=== PATIENT | male | born 1975 | race Caucasian/White ===

== ENCOUNTER 2018-08-11 11:57 | Emergency (ER) | payer OTHER, SELFPAY ==
[2018-08-11 12:00] VITALS: BP 161/90; PULSE 65; RESP 16; TEMP 36.8; O2SAT 97
--- NOTE | 2018-08-11 12:07 | W.ED.GENAD ---
Discharge Plan Disposition Patient Disposition: HOME Condition: Fair Discharge Details Chief Complaint: Abd Prob Clinical Impression: Gastroenteritis, Colitis Primary Care Provider: Sommer,Local ED Provider: Layla Truong Home Meds and New Rx's Prescriptions: New ciprofloxacin HCl 500 mg tablet 500 mg PO Q12H Qty: 14 RF: 0 metronidazole [Flagyl] 500 mg tablet 500 mg PO TID Qty: 20 RF: 0 promethazine 25 mg tablet 25 mg PO Q6H PRN (Reason: nausea and vomiting) Qty: 10 RF: 0 Continued lisinopril 5 mg Tablet 5 mg PO DAILY RF: 0 Discharge Instructions Instructions: Gastroenteritis (ED), Infectious Colitis (ED) Additional Instructions: Encourage hydration. May use Tylenol as needed for discomfort. Please take Phenergan as prescribed to help with nausea or vomiting. Please take the ciprofloxacin and Flagyl as prescribed for infection. Please keep upcoming appointment with general surgery and contact your primary care provider Monday to schedule appointment this week. If you develop fever/chills, inability stay hydrated, increased pain, weakness or other new/worsening symptoms please seek care urgently once again. We will contact you if any of the pending tests are positive. Discharge Data Discharge Date/Time-TO BE ENTERED AT DEPARTURE: 08/11/18 16:25 Medical Decision Making Patient is a 43-year-old male presenting today with chief complaint of abdominal pain that began approximately 10 hours prior to arrival. He reports that he has been having periumbilical and left lower quadrant pain. He endorses nausea and vomiting. States he has had multitude of episodes of diarrhea that has since become bloody. Does have a history of hemorrhoids but states they have never been actively bleeding before. Surgical history pertinent for left nephrectomy secondary to cancer. Patient reports he did have an MRI recently which was clear of any signs of recurrence. Is not actively nauseated. Rates pain at a 6 out of 10 at this time. Denies any fevers or chills. Patient is camping currently. No one else has symptoms like this. Was a treated with Flagyl by his primary care for hernia pain but is been several weeks since completion of this. Denies any recent travel out of the country. Labs are reassuring. Patient is not anemic, no leukocytosis. His BUN is 19, creatinine 1.46. Patient reports that this is typical and quite good for him. GFR 52 which she states, higher in for him status post nephrectomy. Glucose is 139, I did discuss this with the patient. He has no known diagnosis of diabetes. Advised that this may be secondary to his acute illness and should discuss further with his primary care physician. Urine is concerning for trace amount of blood. Otherwise without significant abnormality. Patient reports that he has had blood in his urine historically but will discuss this further with his primary care. Lactoferrin is positive on stool sample. C. difficile is negative. Secondary the patient's kidney function and that he only has 1 functioning kidney, decided to hold off on IV contrast. Instead, we will use oral. CT reviewed by radiologist. They note a likely cyst to the right kidney. We will discuss this with the patient. He does have mural thickening of the descending colon consistent with nonspecific colitis. No evidence of diverticular disease. Trace amount of free fluid in the pelvis no evidence of free air or abscess. I also notes: Complicated fat-containing inguinal hernias bilaterally, patient is aware of these and has plan for treatment of these. Discussed the findings with the patient. General surgeon was in the department at the time these results came back from CT and recommended Cipro and Flagyl. I discussed this plan with the patient. We discussed the risks associated with ciprofloxacin in particular. I advised that she begin using probiotic. Encourage hydration. He is able to take an oral hydration. As he is continuing to endorse mild nausea, will give Zofran ODT. Patient given Tylenol for abdominal discomfort. We discussed home remedies and [id number] medications that may help with symptomatic management. Will treat with ciprofloxacin and Flagyl as directed by surgeon. Advise close follow-up with primary care provider, patient is going home on Monday and will schedule follow-up appointment. Disc of images were sent home with him. He was given strict return precautions. All of his questions and concerns were addressed and he is in agreement with this plan HPI General Mode of arrival: ambulatory. Date/Time Provider Initiated Documentation: 08/11/18 11:58. Limitations to Documentation: no limitations. Information obtained by: patient and RN notes reviewed. History of Present Illness 43 year old M presents to the emergency department with the chief complaint of abdominal pain, described as moderate, with intensity rated at 6. Quality is described as aching, and is localized to the abdomen. Patient reports no radiation. Patient started experiencing this hour(s) (10) and it has been constant. No relieving factors improve symptom(s), No exacerbating factors reported . Patient notes loss of appetite and nausea/vomiting; denies chest pain, fever/chills, rash, shortness of breath and weakness. Patient did receive the following treatments prior to arrival, none Related Data Home Medications Medication Instructions Recorded Confirmed ciprofloxacin HCl 500 mg PO Q12H #14 tab 08/11/18 lisinopril 5 mg PO DAILY 08/11/18 08/11/18 metronidazole [Flagyl] 500 mg PO TID #20 tab 08/11/18 promethazine 25 mg PO Q6H PRN #10 tab 08/11/18 Previous Rx's Medication Instructions Recorded ciprofloxacin HCl 500 mg PO Q12H #14 tab 08/11/18 metronidazole [Flagyl] 500 mg PO TID #20 tab 08/11/18 promethazine 25 mg PO Q6H PRN #10 tab 08/11/18 Allergies Allergy/AdvReac Type Severity Reaction Status Date / Time No Known Allergies Allergy Unverified 08/11/18 12:04 General Stated Complaint: Abd Prob MILLICENT: 3 Review of Systems Constitutional Reports as per HPI, Denies chills, Denies fatigue, Denies fever(s) and Denies headache(s) ENT Denies headache(s) Cardiovascular Reports as per HPI, Denies chest pain and Denies dyspnea Respiratory Reports as per HPI, Denies cough and Denies dyspnea Gastrointestinal Reports as per HPI, Reports abdominal pain, Reports hematochezia, Reports diarrhea, Reports nausea and Reports vomiting Genitourinary Denies system reviewed and no additional complaints, except as docu (patient denies any change in urinary habits) Musculoskeletal Reports as per HPI and Denies back pain Integumentary/Breasts Reports as per HPI and Denies rash Neurologic Reports as per HPI and Denies headache(s) Endocrine Denies fatigue [facility] Social History Smoking/Tobacco Use Status: Never Alcohol Intake: current Alcohol Intake frequency: a few times a week Alcohol type: hard liquor Drug use: Never Substance use type: does not use Do you feel safe at home: Yes Do you feel safe in your relationship?: Yes Exam Const General: cooperative, healthy appearing, comfortable, no acute distress and well developed Nutritional Appearance: average body habitus and well nourished Orientation: alert and awake [facility] Head: normal to inspection Mouth: moist mucous membranes Resp Effort & Inspection: normal respiratory effort, able to speak in complete sentences and no respiratory distress Auscultation: clear to auscultation bilaterally, no rales, no rhonchi and no wheezes Cardio Rate: regular rate Rhythm: regular rhythm Heart Sounds: S1 normal and S2 normal GI Inspection: normal to inspection, non-distended, no visible herniation and no visible pulsation Palpation: soft, no hepatosplenomegaly, no guarding, not rigid, no splenomegaly and tender in the LLQ; obturator sign negative, psoas sign negative and with no rebound tenderness Percussion: normal to percussion Auscultation: normal bowel sounds Rectal Exam: visual inspection normal, normal sphincter tone, prostate normal, No fecal impaction, No fissure, heme positive stool gross blood, No hemorrhoids and No tenderness Back/Spine/Pelvis Back: no CVA tenderness Skin General skin exam: no rashes or lesions noted Trauma: no lacerations or abrasions Neuro General: alert and awake Cognition: normal cognition Speech: speech normal Gait: normal gait Psych Appearance: grossly normal and well kempt Mental Status: mental status grossly normal Speech and Movement: speech and movement normal Course Vital Signs Temperature 36.8 C 08/11/18 12:00 Pulse 65 08/11/18 12:00 Respiratory Rate 16 08/11/18 12:00 Blood Pressure 161/90 H 08/11/18 12:00 Pulse Oximetry 97 08/11/18 12:00 Temperature 36.8 C 08/11/18 12:00 Pulse 65 08/11/18 12:00 Respiratory Rate 16 08/11/18 12:00 Respiratory Effort Non-Labored 08/11/18 12:01 Blood Pressure 161/90 H 08/11/18 12:00 Pulse Oximetry 97 08/11/18 12:00 Oxygen Delivery Method Room Air 08/11/18 12:00 Oxygen Flow Rate 0 08/11/18 12:00 Pain Level 6 08/11/18 12:00
[2018-08-11 12:09] VITALS: BP 159/89; RESP 15; TEMP 36.7; O2SAT 100
--- NOTE | 2018-08-11 12:33 | DI.CT_ITS ---
SYMPTOM/DIAGNOSIS: CENTRAL/LLQ PAIN WITH BLOOD IN STOOL, ? DIVERTICULA ABDOMEN AND PELVIC CT: 08/11 CT Examination of the abdomen and pelvis was performed with oral contrast only. Images obtained through the lung bases are unremarkable. Liver, spleen and pancreas have an unremarkable noncontrast appearance. Gallbladder and biliary ducts are unremarkable. Adrenals appear normal bilaterally. Prior left nephrectomy noted. Right kidney unremarkable in appearance except for probable small cortical cyst. No evidence of hydronephrosis or nephrolithiasis. Mild urinary bladder wall thickening noted, question cystitis vs mild chronic bladder outlet obstruction. No significant abdominal or pelvic adenopathy seen. Small bilateral fat containing inguinal hernias noted. Appendix is normal. No evidence of diverticulitis. Note is made of an area of wall thickening of the descending colon with mild associated pericolonic fat edema suggesting colitis. No evidence of abscess or obstruction. Trace free fluid in the pelvis, nonspecific. CONCLUSION: Findings suggestive of colitis involving the descending colon as described above.
--- NOTE | 2018-08-11 12:40 | ED.GENADUL_ITS ---
Discharge Plan Disposition Patient Disposition: HOME Condition: Fair Discharge Details Chief Complaint: Abd Prob Clinical Impression: Gastroenteritis, Colitis Primary Care Provider: Sommer,Local ED Provider: Layla Truong Home Meds and New Rx's Prescriptions: New ciprofloxacin HCl 500 mg tablet 500 mg PO Q12H Qty: 14 RF: 0 metronidazole [Flagyl] 500 mg tablet 500 mg PO TID Qty: 20 RF: 0 promethazine 25 mg tablet 25 mg PO Q6H PRN (Reason: nausea and vomiting) Qty: 10 RF: 0 Continued lisinopril 5 mg Tablet 5 mg PO DAILY RF: 0 Discharge Instructions Instructions: Gastroenteritis (ED), Infectious Colitis (ED) Additional Instructions: Encourage hydration. May use Tylenol as needed for discomfort. Please take Phenergan as prescribed to help with nausea or vomiting. Please take the ciprofloxacin and Flagyl as prescribed for infection. Please keep upcoming appointment with general surgery and contact your primary care provider Monday to schedule appointment this week. If you develop fever/chills, inability stay hydrated, increased pain, weakness or other new/worsening symptoms please seek care urgently once again. We will contact you if any of the pending tests are positive. Discharge Data Discharge Date/Time-TO BE ENTERED AT DEPARTURE: 08/11/18 16:25 Medical Decision Making Patient is a 43-year-old male presenting today with chief complaint of abdominal pain that began approximately 10 hours prior to arrival. He reports that he has been having periumbilical and left lower quadrant pain. He endorses nausea and vomiting. States he has had multitude of episodes of diarrhea that has since become bloody. Does have a history of hemorrhoids but states they have never been actively bleeding before. Surgical history pertinent for left nephrectomy secondary to cancer. Patient reports he did have an MRI recently which was clear of any signs of recurrence. Is not actively nauseated. Rates pain at a 6 out of 10 at this time. Denies any fevers or chills. Patient is camping currently. No one else has symptoms like this. Was a treated with Flagyl by his primary care for hernia pain but is been several weeks since completion of this. Denies any recent travel out of the country. Labs are reassuring. Patient is not anemic, no leukocytosis. His BUN is 19, creatinine 1.46. Patient reports that this is typical and quite good for him. GFR 52 which she states, higher in for him status post nephrectomy. Glucose is 139, I did discuss this with the patient. He has no known diagnosis of diabetes. Advised that this may be secondary to his acute illness and should discuss further with his primary care physician. Urine is concerning for trace amount of blood. Otherwise without significant abnormality. Patient reports that he has had blood in his urine historically but will discuss this further with his primary care. Lactoferrin is positive on stool sample. C. difficile is negative. Secondary the patient's kidney function and that he only has 1 functioning kidney, decided to hold off on IV contrast. Instead, we will use oral. CT reviewed by radiologist. They note a likely cyst to the right kidney. We will discuss this with the patient. He does have mural thickening of the descending colon consistent with nonspecific colitis. No evidence of diverticular disease. Trace amount of free fluid in the pelvis no evidence of free air or abscess. I also notes: Complicated fat-containing inguinal hernias bilaterally, patient is aware of these and has plan for treatment of these. Discussed the findings with the patient. General surgeon was in the department at the time these results came back from CT and recommended Cipro and Flagyl. I discussed this plan with the patient. We discussed the risks associated with ciprofloxacin in particular. I advised that she begin using probiotic. Encourage hydration. He is able to take an oral hydration. As he is continuing to endorse mild nausea, will give Zofran ODT. Patient given Tylenol for abdominal discomfort. We discussed home remedies and [id number] medications that may help with symptomatic management. Will treat with ciprofloxacin and Flagyl as directed by surgeon. Advise close follow-up with primary care provider, patient is going home on Monday and will schedule follow- up appointment. Disc of images were sent home with him. He was given strict return precautions. All of his questions and concerns were addressed and he is in agreement with this plan HPI General Mode of arrival: ambulatory . Date/Time Provider Initiated Documentation: 08/11/18 11:58 . Limitations to Documentation: no limitations . Information obtained by: patient and RN notes reviewed . History of Present Illness 43 year old M presents to the emergency department with the chief complaint of abdominal pain, described as moderate, with intensity rated at 6. Quality is described as aching, and is localized to the abdomen. Patient reports no radiation. Patient started experiencing this hour(s) (10) and it has been constant. No relieving factors improve symptom(s), No exacerbating factors reported . Patient notes loss of appetite and nausea/vomiting; denies chest pain, fever/chills, rash, shortness of breath and weakness. Patient did receive the following treatments prior to arrival, none Related Data Home Medications Medication Instructions Recorded Confirmed ciprofloxacin HCl 500 mg PO Q12H #14 tab 08/11/18 lisinopril 5 mg PO DAILY 08/11/18 08/11/18 metronidazole [Flagyl] 500 mg PO TID #20 tab 08/11/18 promethazine 25 mg PO Q6H PRN #10 tab 08/11/18 Previous Rx's Medication Instructions Recorded ciprofloxacin HCl 500 mg PO Q12H #14 tab 08/11/18 metronidazole [Flagyl] 500 mg PO TID #20 tab 08/11/18 promethazine 25 mg PO Q6H PRN #10 tab 08/11/18 Allergies Allergy/AdvReac Type Severity Reaction Status Date / Time No Known Allergies Allergy Unverified 08/11/18 12:04 General Stated Complaint: Abd Prob MILLICENT: 3 Review of Systems Constitutional Reports as per HPI, Denies chills, Denies fatigue, Denies fever(s) and Denies headache(s) ENT Denies headache(s) Cardiovascular Reports as per HPI, Denies chest pain and Denies dyspnea Respiratory Reports as per HPI, Denies cough and Denies dyspnea Gastrointestinal Reports as per HPI, Reports abdominal pain, Reports hematochezia, Reports diarrhea, Reports nausea and Reports vomiting Genitourinary Denies system reviewed and no additional complaints, except as docu (patient denies any change in urinary habits) Musculoskeletal Reports as per HPI and Denies back pain Integumentary/Breasts Reports as per HPI and Denies rash Neurologic Reports as per HPI and Denies headache(s) Endocrine Denies fatigue [facility] Social History Smoking/Tobacco Use Status: Never Alcohol Intake: current Alcohol Intake frequency: a few times a week Alcohol type: hard liquor Drug use: Never Substance use type: does not use Do you feel safe at home: Yes Do you feel safe in your relationship?: Yes Exam Const General: cooperative, healthy appearing, comfortable, no acute distress and well developed Nutritional Appearance: average body habitus and well nourished Orientation: alert and awake [facility] Head: normal to inspection Mouth: moist mucous membranes Resp Effort & Inspection: normal respiratory effort, able to speak in complete sentences and no respiratory distress Auscultation: clear to auscultation bilaterally, no rales, no rhonchi and no wheezes Cardio Rate: regular rate Rhythm: regular rhythm Heart Sounds: S1 normal and S2 normal GI Inspection: normal to inspection, non-distended, no visible herniation and no visible pulsation Palpation: soft, no hepatosplenomegaly, no guarding, not rigid, no splenomegaly and tender in the LLQ; obturator sign negative, psoas sign negative and with no rebound tenderness Percussion: normal to percussion Auscultation: normal bowel sounds Rectal Exam: visual inspection normal, normal sphincter tone, prostate normal, No fecal impaction, No fissure, heme positive stool gross blood, No hemorrhoids and No tenderness Back/Spine/Pelvis Back: no CVA tenderness Skin General skin exam: no rashes or lesions noted Trauma: no lacerations or abrasions Neuro General: alert and awake Cognition: normal cognition Speech: speech normal Gait: normal gait Psych Appearance: grossly normal and well kempt Mental Status: mental status grossly normal Speech and Movement: speech and movement normal Course Vital Signs Temperature 36.8 C 08/11/18 12:00 Pulse 65 08/11/18 12:00 Respiratory Rate 16 08/11/18 12:00 Blood Pressure 161/90 H 08/11/18 12:00 Pulse Oximetry 97 08/11/18 12:00 Temperature 36.8 C 08/11/18 12:00 Pulse 65 08/11/18 12:00 Respiratory Rate 16 08/11/18 12:00 Respiratory Effort Non-Labored 08/11/18 12:01 Blood Pressure 161/90 H 08/11/18 12:00 Pulse Oximetry 97 08/11/18 12:00 Oxygen Delivery Method Room Air 08/11/18 12:00 Oxygen Flow Rate 0 08/11/18 12:00 Pain Level 6 08/11/18 12:00
[2018-08-11] MEDS: Normal Saline 1,000 ML 1000 ML IV (12:45)
[2018-08-11 13:01] LABS: Bilirubin Negative (Negative); Blood Trace-intact (Negative); Clarity Clear (Clear); Glucose Negative (Negative); Ketones Negative (Negative); Leukocyte Esterase Negative (Negative); Nitrite Negative (Negative); Urobilinogen 0.2 EU/dL (Up TO 0.2); pH 6.5 (5-8)
[2018-08-11 13:03] LABS: Abs Immature Grans 0.02 k/cumm (0.0-0.09); Absolute Basophil Count 0.01 k/cumm (0.0-0.2); Absolute Eosinophil Count 0.01 k/cumm (0.0-0.7); Absolute Lymphocyte Count 0.43 k/cumm (1.2-3.4); Absolute Neutrophil Count 9.54 k/cumm (1.2-6.7); Basophils % 0.1; Eosinophils % 0.1; HCT 48.3 % (40.0-50.0); HGB 17.4 g/dL (13.5-17.5); Immature Grans % 0.2; Lymphocytes % 4.1; Mean Corpuscular Hemoglobin 31.9 pg (27.0-33.0); Mean Corpuscular Volume 88.5 fL (80-95); Mean Platelet Volume 9.9 fL (8.0-11.0); Monocytes % 3.8; Neutrophils % 91.7; Platelet Count 276 x1000/uL (130-400); RBC 5.46 m/cumm (4.50-6.00); White Blood Cell Count 10.41 k/cumm (4.4-10.8)
[2018-08-11 13:05] LABS: Bacteria Negative HPF (Negative); Casts Negative LPF (Negative); Crystals Few Amorphous HPF (Negative); Epithelial Cells Rare HPF (Negative); Mucus Trace (Negative); RBC 0-2 (0-2); WBC 0-2 HPF (0-5)
[2018-08-11 13:06] LABS: C & S Indicated? No
[2018-08-11 13:09] LABS: PTT Activated 22.8 sec (21.0-31.4); Prothrombin Time 10.3 sec (9.3-11.0)
[2018-08-11 13:13] LABS: ALT 42 U/L (12-78); AST 19 U/L (15-37); Albumin 4.9 g/dL (3.4-5.0); Alkaline Phosphatase 86 U/L (46-116); Anion Gap 14.5 mmol/L (3-11); BUN 19 mg/dL (7-18); Bilirubin, Total 0.7 mg/dL (0.2-1.0); CO2 23.5 mmol/L (21.0-32.0); CREATININE 1.46 mg/dL (0.70-1.30); Calcium 9.1 mg/dL (8.5-10.1); Chloride 102 mmol/L (98-107); Estimated GFR 52.95 (mL/min/1.73m2); Glucose 139 mg/dL (70-100); Potassium 4.4 mmol/L (3.5-5.1); Sodium 140 mmol/L (136-145); Total Protein 8.3 g/dL (6.4-8.2)
[2018-08-11 13:15] LABS: Troponin I < 0.05 ng/mL (0.00-0.06)
--- NOTE | 2018-08-11 14:05 | NUR.NOTE ---
Nursing Note: pt drinking oral contrast. updated on plan of care. verbalized understanding.
--- NOTE | 2018-08-11 15:14 | NUR.NOTE ---
Nursing Note: pt to CT
--- NOTE | 2018-08-11 15:32 | DI.VRAD_ITS ---
EXAM: CT Abdomen and Pelvis Without Contrast EXAM DATE/TIME: 08/11/2018 1:48 PM CLINICAL HISTORY: 43 years old, male; Other: Central/llq pain with blood in stool, ? diverticulitis. IV contrast was not administered due to the patient's moderate renal insufficiency with a GFR of 52.95. TECHNIQUE: Imaging protocol: Axial computed tomography images of the abdomen and pelvis without contrast. Coronal and sagittal reformatted images were created and reviewed. Radiation optimization: All CT scans at this facility use at least one of these dose optimization techniques: automated exposure control; mA and/or kV adjustment per patient size (includes targeted exams where dose is matched to clinical indication); or iterative reconstruction. COMPARISON: No relevant prior studies available. FINDINGS: Limitations: Absence of IV contrast decreases soft tissue differentiation and sensitivity for detecting pathology. Liver: Normal. No mass. Gallbladder and bile ducts: Normal. No calcified stones. No ductal dilation. Pancreas: Normal. No ductal dilation. Spleen: Normal. No splenomegaly. Adrenals: Normal. No mass. Kidneys and ureters: There has been a left nephrectomy.There is a focal subcentimeter right renal hypodensity that cannot be further characterized on the current examination. This lesion is too small to accurately characterize but statistically most likely represents an incidental cyst. The right kidney otherwise demonstrates normal morphology with no calculi, hydronephrosis or perinephric stranding. Stomach and bowel: The stomach is normal. The duodenum is unremarkable.There is no evidence of intestinal obstruction. There is mural thickening of a segment of the descending colon (image 38 through 71 of series 2, image 33 of series 5). No definite diverticula are identified along this segment. There is mild pericolonic stranding. Remainder of the colon demonstrates no evidence of diverticular disease. Appendix: No evidence of appendicitis. Intraperitoneal space: There is trace free fluid in the pelvis (73/2).There is no free intraperitoneal air. No focal encapsulated fluid collections to suggest drainable abscess. Vasculature: The aorta is normal in caliber.The vasculature demonstrates diffuse mild atherosclerotic calcification. Lymph nodes: Normal. No enlarged lymph nodes. Bladder: Unremarkable as visualized. Reproductive: Unremarkable as visualized. Bones/joints: No acute fracture. No dislocation. Soft tissues: There are small uncomplicated fat containing inguinal hernias bilaterally.There is a small uncomplicated fat-containing umbilical hernia. IMPRESSION: 1. Mural thickening of a segment of the descending colon consistent with nonspecific colitis. No evidence of diverticular disease. 2. There is trace free fluid in the pelvis. No evidence of free air or abscess. Remainder of non-emergent findings as described above. Dictated and Authenticated by: Niki Manzo MD. Ordering:LOPEZ Rich MD
[2018-08-11 15:40] VITALS: BP 141/80; PULSE 64; RESP 16; O2SAT 100
[2018-08-11] MEDS: Acetaminophen 325 MG TAB 650 MG PO (16:23)
[2018-08-11] MEDS: Ondansetron O.D.T. 4 MG TABEF PO (16:23)
== END 2018-08-11 16:25 | disposition home or self-care (01) ==
PROVIDERS: Emergency Provider Physician Assistant
DX: K52.9 Noninfective gastroenteritis and colitis, unspecified (principal); Z90.5 Acquired absence of kidney
CPT/HCPCS: 80053; 87329; 96360; 99285; 74176; 81003; 81015; 83630; 83735; 84484; 85025; 85610; 85730; 87324; 99284